=== PATIENT | female | born 1980 | race Caucasian/White ===

== ENCOUNTER → 2018-01-30 17:04 | Outpatient (CLI) | payer OTHER, SELFPAY ==
[2018-02-03 09:12] LABS: HPV APTIMA, High Risk Negative (Negative)
== END ==
PROVIDERS: Family Provider Internal Medicine; PCP Internal Medicine; Visit Provider Obstetrics & Gynecology
DX: Z12.4 Encounter for screening for malignant neoplasm of cervix (principal); Z11.51 Encounter for screening for human papillomavirus (HPV)
CPT/HCPCS: 88175; G0145

== ENCOUNTER → 2021-06-03 09:32 | Outpatient (CLI) | payer OTHER, SELFPAY ==
[2021-05-26 10:41] VITALS: BMI 37.9
--- NOTE | 2021-06-02 16:29 | BI_ITS ---
MAMMOGRAPHY - BILATERAL SCREENING REASON FOR EXAM: Female, 40 years old. Routine annual screening examination. PERTINENT HISTORY: Non-contributory. TECHNIQUE: Digital bilateral breast mara (3D mammographic acquisition) in the CC and MLO projections. 2-D mediolateral oblique (MLO) and craniocaudad (CC) views of both breasts were obtained. CAD: Full Field Digital Mammography with Computer Added Detection was performed. COMPARISON: None. Baseline examination. FINDINGS: Breast Composition: There are scattered areas of fibroglandular density. There are no dominant masses or suspicious calcifications. There is a 3.4 mm x 4.3 mm well-defined nodule in the central mid lateral aspect of the right breast. Correlation with ultrasound is recommended. Scattered microcalcifications in both breasts. No focal clusters seen. Small benign appearing bilateral axillary lymph nodes. No other significant abnormalities are identified. BI/SCRN MAMM (CAD)W/MARA BILAT IMPRESSION: 3.4 mm x 4.3 mm well-defined nodule in the central mid lateral aspect of the right breast. Correlation with ultrasound is recommended. ASSESSMENT CATEGORY: BIRADS Category 0: Incomplete. Need additional imaging evaluation. A letter regarding these results will be sent to the patient by the facility within 30 days. Approximately 10% of breast cancers are not detected by mammography. A normal mammogram should not delay biopsy of a clinically suspicious abnormality. [id number] Electronically Signed: Vicente Chapin MD at 8:19 EDT , Service support ,
== END ==
PROVIDERS: Referring Provider Nurse Practitioner Women's Health; Visit Provider Nurse Practitioner Women's Health
DX: Z12.31 Encounter for screening mammogram for malignant neoplasm of breast (principal); N63.10 Unspecified lump in the right breast, unspecified quadrant
CPT/HCPCS: 77063; 77067

== ENCOUNTER → 2021-06-16 13:54 | Outpatient (CLI) | payer OTHER, SELFPAY ==
[2021-05-26 10:41] VITALS: BMI 37.9
--- NOTE | 2021-06-16 14:00 | US_ITS ---
STUDY: ULTRASOUND BREAST - RIGHT REASON FOR EXAM: Female, 40 years old. Abnormal screening mammogram. TECHNIQUE: Axial and longitudinal images of the RIGHT breast were performed with a high resolution ultrasound transducer. # OF IMAGES: 50 COMPARISON: Comparison is made with prior mammogram dated 06/02/2021. FINDINGS: RIGHT Breast: The mammographic abnormality corresponds to a 4.4 mm x 4.4 mm x 2 mm cyst at the 7:30 position of the breast at 6 cm from nipple. Incidental note is made of a 1 cm x 1 cm x 0.4 cm lymph node in the axillary region of the breast. US/Breast Limited Unilateral IMPRESSION: 4.4 mm x 4.4 mm x 2 mm cyst at the 7:30 position of the breast at 6 cm from the nipple. ASSESSMENT CATEGORY: BIRADS Category 2: Benign. A letter regarding these results will be sent to the patient by the facility within 30 days. Electronically Signed: Vicente Chapin MD at 15:42 EDT , Service support ,
== END ==
PROVIDERS: Referring Provider Nurse Practitioner Women's Health; Visit Provider Nurse Practitioner Women's Health
DX: N60.01 Solitary cyst of right breast (principal)
CPT/HCPCS: 76642

== ENCOUNTER → 2022-09-21 | Outpatient (CLI) | payer OTHER, SELFPAY ==
[2022-09-21 09:54] LABS: Absolute Lymphocyte Count 3.44 X10^3/uL (0.83-4.51); Absolute Neutrophil Count 3.9 X10^3/uL (2.0-7.7); Basophil# 0.06 X10^3/uL; Basophil% 0.7 % (0-1); Eosinophil# 0.15 X10^3/uL; Eosinophils% 1.8 % (0-5); Hematocrit 41.2 % (37-47); Lymphocyte # 3.44 X10^3/ul (0.83-4.51); Lymphocyte % 42.3 % (19-41); Mean Corpuscular Hgb 30.4 pg (27.0-32.0); Mean Corpuscular Volume 89.4 fL (81-99); Mean Platelet Vol. 9.2 fl (6.2-12.0); Monocyte# 0.54 X10^3/uL; Monocyte% 6.6 % (0-10); NRBC Flagged by Analyzer 0 % (0-5); Neutrophil # 3.92 X10^3/uL (2.7-7.7); Neutrophil % 48.2 % (47-70); Platelet Count 376 K/mm3 (150-450); RBC Distribution Width CV 11.4 % (11.6-14.6); RBC Distribution Width SD 36.8 fl (35.1-43.9); Red Blood Count 4.61 M/mm3 (4.2-5.4); White Blood Count 8.1 K/mm3 (4.4-11.0)
[2022-09-21 10:18] LABS: Vitamin D,25 Hydroxy 13.5 ng/mL
[2022-09-21 10:34] LABS: ALB/GLOB Ratio 0.8 RATIO (0.9-2.4); AST(SGOT) 15 U/L (15-37); Alanine Aminotransfer ALT/SGPT 24 U/L (13-56); Albumin, Serum 3.4 g/dL (3.2-5.0); Alkaline Phosphatase 54 U/L (45-117); Anion Gap 8 (5-15); BUN 12 mg/dL (7-18); BUN/Creat Ratio 16.1 RATIO (10-20); Calcium,Total 9.3 mg/dL (8.5-10.1); Chloride 104 mmol/L (98-107); Cholesterol 233 mg/dL (200); Creatinine, Serum 0.74 mg/dL (0.55-1.02); EST Glomerular Filtration Rate 91 mL/min (>60); Est Glom Filt Rate - Afr Amer 110 mL/min (>60); Globulin 4.3 g/dL (2.2-4.2); Glucose 100 mg/dL (74-106); High Density Lipoprotein 91 mg/dL; Potassium 3.9 mmol/L (3.5-5.1); Protein, Total 7.7 g/dL (6.4-8.2); Sodium Level 137 mmol/L (136-145); Thyroid Stim Hormone (TSH) 2.02 uIU/mL (0.358-3.74); Triglycerides 127 mg/dL; Very Low Density Lipoprotein 25 mg/dL (5-40)
== END | disposition home or self-care (01) ==
LOC: PAVLAB 09:14
PROVIDERS: Nurse Practitioner Women's Health; Referring Provider Obstetrics & Gynecology; Visit Provider Obstetrics & Gynecology
DX: Z13.1 Encounter for screening for diabetes mellitus (principal); R53.83 Other fatigue; Z13.21 Encounter for screening for nutritional disorder; Z13.220 Encounter for screening for lipoid disorders
CPT/HCPCS: 36415; 80053; 80061; 82306; 84443; 85025

== ENCOUNTER → 2022-11-05 | Outpatient (CLI) | payer OTHER, SELFPAY ==
--- NOTE | 2022-11-05 08:31 | BI_ITS ---
MAMMOGRAPHY - BILATERAL SCREENING REASON FOR EXAM: Female, 42 years old. Routine annual screening examination. PERTINENT HISTORY: Non-contributory. TECHNIQUE: Digital bilateral breast mara (3D mammographic acquisition) in the CC and MLO projections. 2-D mediolateral oblique (MLO) and craniocaudad (CC) views of both breasts were obtained. CAD: Full Field Digital Mammography with Computer Added Detection was performed. COMPARISON: Comparison is made with prior study 06/02/2021. FINDINGS: Breast Composition: There are scattered areas of fibroglandular density. There are no dominant masses or suspicious calcifications. Stable 3.4 mm x 4.3 mm well-defined nodule in the central mid lateral aspect of the right breast. This was shown to be a small cyst on prior sonogram. Stable benign-appearing bilateral axillary lymph nodes. No other significant abnormalities are identified. There has been no significant change since the prior study. BI/SCRN MAMM (CAD)W/MARA BILAT IMPRESSION: Stable bilateral screening mammogram. Yearly follow-up mammogram recommended. (A) ASSESSMENT CATEGORY: BIRADS Category 2: Benign. A letter regarding these results will be sent to the patient by the facility within 30 days. Approximately 10% of breast cancers are not detected by mammography. A normal mammogram should not delay biopsy of a clinically suspicious abnormality. [id number] Electronically Signed: Vicente Chapin MD at 9:32 EST ,
== END | disposition home or self-care (01) ==
LOC: OPBI 08:30
PROVIDERS: PCP Internal Medicine; Referring Provider Nurse Practitioner Women's Health; Visit Provider Nurse Practitioner Women's Health
DX: Z12.31 Encounter for screening mammogram for malignant neoplasm of breast (principal)
CPT/HCPCS: 77063; 77067

== ENCOUNTER → 2023-05-04 | Outpatient (CLI) | payer OTHER, SELFPAY ==
[2023-05-04 16:59] LABS: Hemoglobin A1c 5.2 % (3.8-5.6)
== END | disposition home or self-care (01) ==
LOC: BIMLAB 15:23
PROVIDERS: Nurse Practitioner Women's Health; PCP Internal Medicine; Visit Provider Internal Medicine
DX: Z13.21 Encounter for screening for nutritional disorder (principal); Z86.32 Personal history of gestational diabetes
CPT/HCPCS: 36415; 82306; 83036

== ENCOUNTER → 2023-11-09 | Outpatient (CLI) | payer OTHER, SELFPAY ==
--- OUTSIDE RECORDS SUMMARY | 2023-11-09 17:15 | XMS RPT_ITS | CCD ---
Author Name Unknown Address [address] [place] [address] Organization [facility] Care Team Providers Care Towel Folder Name Role Phone Unavailable Unavailable Unavailable Aletha Magallanes Unavailable Unavailabl e Aletha Magallanes Unavailable Unavailabl e Required, No Pcp Unavailable Unavailable Armaan Allen Unavailable CARI Allen Attending Unavailable Allergies Allergy Classification Reported Allergen(s) Allergy Type Date of Onset Reaction(s) Facility (1 source) Codeine Drug Allergy Other [facility] (1 source) Piperacillin / tazobactam Drug Allergy Hives [facility] Medications Current Medications Medication Drug Class(es) Dates Sig (Normalized) Sig (Original) Escitalopram (1 source) Serotonin Reuptake Inhibitor Lexapro Quantity: 0 Refills: 0 Ordered: 19-Oct-2022 Garcia Rivera Generic Substitution Allowed predniSONE 10 mg oral tablet (1 source) Start: 10-19-2022 End: 10-25-2022 take 1 tablet by mouth once daily at mealtime predniSONE 10 mg oral tablet ; 3 tab(s) orally once a day in the morning with plenty of water for 7d Quantity: 21 Refills: 0 Ordered: 19-Oct-2022 Armaan Allen Start: 19-Oct-2022 End: 25-Oct-2022 Generic Substitution Allowed Comments: It is very important that you take or use this exactly as directed. Do not skip doses or discontinue unless directed by your doctor.Obtain medical advice before taking any non-prescription drugs as some may affect the action of this medication.Take with food or milk. Problems Problem Classification Problem Date Documented Da te Episodic/Chronic Acute bronchitis (3 sources) Acute viral bronchitis; Translations: [Acute bronchitis] Onset: 10-19-2022 10-19-2022 Episodic Headache; including migraine (1 source) Headache; including migraine; Translations: [Headache, unspecified] Onset: 10-19-2022 Other lower respiratory disease (2 sources) Cough 10-19-2022 Episodic Results Test Name Value Interpretation Reference Range Facil ity Vital Signs Date Time Vital Sign Value Performing Clinician Facility 10-19-2022 17:35-0500 Body height 167.6 cm No Pcp Required [facility] 10-19-2022 17:35-0500 Body temperature 98.24 [degF] No Pcp Required [facility] 10-19-2022 17:35-0500 Diastolic blood pressure 88 mm[Hg] No Pcp Required [facility] 10-19-2022 17:35-0500 Heart rate 81 /min No Pcp Required [facility] 10-19-2022 17:35-0500 Respiratory rate 20 /min No Pcp Required [facility] 10-19-2022 17:35-0500 SaO2% (BldA) [Mass fraction] 97 % No Pcp Required [facility] 10-19-2022 17:35-0500 Systolic blood pressure 141 mm[Hg] No Pcp Required [facility] Encounters Encounter Date Encounter Type Care Provider Facility Start: 10-19-2022 End: 10-19-2022 Emergency department patient visit Armaan Allen [facility] Start: 07-11-2017 Ambulatory Aletha leety:[place] Start: 07-11-2017 End: 07-11-2017 Ambulatory Alivia Gandhi Work Phone: [facility] Payers Date Payer Category Payer Unknown [id number] Unknown [id number] Unknown [employer] [place] Social History Date Type Detail Facility [facility]: [facility]: Sex Assigned At Not on file [facility] Work Phone: Summary Purpose Family History No Family History Records FoundNo Family History Records FoundNo Family History Records Found Advance Directives No Advanced Directives Records FoundNo Advanced Directives Records FoundNo Advanced Directives Records Found Additional Source Comments INFORMATION SOURCE (unrecogn ized section and content) DATE CREATED AUTHOR AUTHOR'S ORGANIZ ATION 04/19/2018 [facility] DATE CREATED AUTHOR AUTHOR'S ORGANIZ ATION 10/21/2022 [facility] <item> Privacy Markings (unrecogniz ed section and content) Section Author: Samaria Friedman PROHIBITION ON REDISCLOSURE OF CONFIDENTIAL INFORMATION This notice accompanies a disclosure of information concerning a client made to you with the consent of such client. FOR RECORDS PERTAINING TO PATIENTS WHO ARE OR HAVE BEEN ENROLLED IN A CHEMICAL DEPENDENCY/SUBSTANCEABUSE PROGRAM, SOME INFORMATION MAY BE OMITTED. This clinical summary was aggregated from multiple sources. Caution should be exercised in using it in the provision of clinical care. This summary normalizes information from multiple sources, and as a consequence, information in this document may materially change the coding, format and clinical context of patient data. In addition, data may be omitted in some cases. CLINICAL DECISIONS SHOULD BE BASED ON THE PRIMARY CLINICAL RECORDS. [facility] [employer] [facility]. provides no warranty or guarantee of the accuracy or completeness of information in this document.
[2023-11-14 15:07] LABS: HPV APTIMA, High Risk Negative (Negative)
== END | disposition home or self-care (01) ==
LOC: LABSPEC 17:00
PROVIDERS: PCP Internal Medicine; Referring Provider Nurse Practitioner Women's Health; Visit Provider Nurse Practitioner Women's Health
DX: Z12.4 Encounter for screening for malignant neoplasm of cervix (principal)
CPT/HCPCS: 87624; 88175; G0145

== ENCOUNTER → 2023-11-28 | Outpatient (CLI) | payer OTHER, SELFPAY ==
--- NOTE | 2023-11-28 09:57 | BI_ITS ---
MAMMOGRAPHY - BILATERAL SCREENING REASON FOR EXAM: Female, 43 years old. Routine annual screening examination. PERTINENT HISTORY: Non-contributory. TECHNIQUE: Digital bilateral breast mara (3D mammographic acquisition) in the CC and MLO projections. 2-D mediolateral oblique (MLO) and craniocaudad (CC) views of both breasts were obtained. CAD: Full Field Digital Mammography with Computer Added Detection was performed. COMPARISON: Comparison is made with prior study dated May 05, 2023 and June 02, 2021. FINDINGS: Breast Composition: The breasts are almost entirely fatty. There are no dominant masses or suspicious calcifications. Stable 3.5 mm well-defined nodule in the central mid lateral portion of the right breast. This was demonstrated to be a small cyst. No other significant abnormalities are identified. There has been no significant change since the prior study. BI/SCRN MAMM (CAD)W/MARA BILAT IMPRESSION: Stable bilateral screening mammogram. Yearly follow-up mammogram recommended. (A) ASSESSMENT CATEGORY: BIRADS Category 2: Benign. A letter regarding these results will be sent to the patient by the facility within 30 days. Approximately 10% of breast cancers are not detected by mammography. A normal mammogram should not delay biopsy of a clinically suspicious abnormality. [id number] Electronically Signed: Vicente Chapin MD at 11:09 EST ,
--- OUTSIDE RECORDS SUMMARY | 2023-11-28 10:23 | XMS RPT_ITS | CCD ---
Author Name Unknown Address [address] [place] [address] Organization [facility] Care Team Providers Care Machine Repair Person Name Role Phone Unavailable Unavailable Unavailable Aletha Mgaallanes Unavailable Unavailabl e Aletha Magallanes Unavailable Unavailabl e Required, No Pcp Unavailable Unavailable Armaan Allen Unavailable CARI Allen Attending Unavailable Allergies Allergy Classification Reported Allergen(s) Allergy Type Date of Onset Reaction(s) Facility (1 source) Codeine Drug Allergy Other [facility] (1 source) Piperacillin / tazobactam Drug Allergy Hives [facility] Medications Current Medications Medication Drug Class(es) [...] Body height 167.6 cm No Pcp Required [facility] 10-19-2022 17:35-0500 Body temperature 98.24 [degF] No Pcp Required [facility] 10-19-2022 17:35-0500 Diastolic blood pressure 88 mm[Hg] No Pcp Required [facility] 10-19-2022 17:35-0500 Heart rate 81 /min No Pcp Required [facility] 10-19-2022 17:35-0500 Respiratory rate 20 /min No Pcp Required [facility] 10-19-2022 17:35-0500 SaO2% (BldA) [Mass fraction] 97 % No Pcp Required [facility] 10-19-2022 17:35-0500 Systolic blood pressure 141 mm[Hg] No Pcp Required [facility] Encounters Encounter Date Encounter Type Care Provider Facility Start: 10-19-2022 End: 10-19-2022 Emergency department patient visit Armaan Allen [facility] Start: 07-11-2017 Ambulatory Aletha leety:[place] Start: 07-11-2017 End: 07-11-2017 Ambulatory Alivia Gandhi Work Phone: [facility] Payers Date Payer Category Payer Unknown [id number] Unknown [id number] Unknown [employer] [place] Social History Date Type Detail Facility Start: 07-12-2017 [facility]: Sex Assigned At Not on file [facility] Work Phone: Summary Purpose Family History No Family History Records FoundNo Family History Records FoundNo Family History Records Found Advance Directives No Advanced Directives Records FoundNo Advanced Directives Records FoundNo Advanced Directives Records Found Additional Source Comments INFORMATION SOURCE (unrecogn ized section and content) DATE CREATED AUTHOR AUTHOR'S ORGANIZ ATION 04/19/2018 [facility] DATE CREATED AUTHOR AUTHOR'S ORGANIZ ATION 10/21/2022 [facility] <item> Privacy Markings (unrecogniz ed section and [...] BE BASED ON THE PRIMARY CLINICAL RECORDS. [facility] [employer] [facility]. provides no warranty or guarantee of the accuracy or completeness of information in this document.
== END | disposition home or self-care (01) ==
LOC: OPBI 09:57
PROVIDERS: PCP Internal Medicine; Referring Provider Nurse Practitioner Women's Health; Visit Provider Nurse Practitioner Women's Health
DX: Z12.31 Encounter for screening mammogram for malignant neoplasm of breast (principal)
CPT/HCPCS: 77063; 77067

== ENCOUNTER → 2024-11-30 | Outpatient (CLI) | payer OTHER, SELFPAY ==
--- NOTE | 2024-11-30 08:58 | BI_ITS ---
PROCEDURE: SCRN MAMM (CAD)W/MARA BILAT REASON FOR EXAM: F, Age 44 y/o, no family history. Annual mammographic follow-up. TECHNIQUE: Bilateral screening digital breast tomosynthesis with 2D and 3D images. Computer aided detection. COMPARISON: Prior exam(s) dating back to November 28, 2023.. FINDINGS: There are scattered areas of fibroglandular density. Stable bilateral scattered microcalcifications. No focal cluster is seen. Stable small bilateral axillary lymph nodes. No suspicious masses, areas of developing architectural distortion, or suspicious calcifications. BI/SCRN MAMM (CAD)W/MARA BILAT IMPRESSION: BI-RADS 2: BENIGN. RECOMMEND ANNUAL MAMMOGRAPHIC SCREENING. Follow-up code: Routine Follow-up The patient will be notified of the results by letter. Reading Location: [place] [id number]
--- NOTE | 2024-11-30 08:58 | US_ITS ---
PROCEDURE: PELVIC W/ TRANSVAGINAL REASON FOR EXAM: Abnormal uterine bleeding. IUD check. TECHNIQUE: Transabdominal and transvaginal pelvic ultrasound COMPARISON: None. FINDINGS: Measurements: Uterus: 8.3 cm x 5.4 cm x 4.8 cm. Endometrial Thickness: 11 mm. Right Ovary: 2.9 cm x 2.4 cm x 1.2 cm. Left Ovary: 2.4 cm x 2.6 cm x 1.8 cm. Uterus: Normal size, myometrial echotexture, and contour. Anteflexed. Nabothian cysts noted. There is a 1 cm calcification noted in the cervix. Endometrium: Unremarkable. Intrauterine device located in the fundus to the lower uterine segment within the posterior endometrium. Right ovary: Normal size and echotexture. Blood flow is documented to the ovary. Left ovary: Normal size and echotexture. Blood flow is documented to the ovary. No large pelvic mass identified. No significant fluid is noted in the cul-de-sac. US/Pelvic w/ Transvaginal IMPRESSION: Intrauterine device located in the fundus to the lower uterine segment within t he posterior endometrium. Reading Location: [id number]
== END | disposition home or self-care (01) ==
LOC: OPUS 08:58
PROVIDERS: PCP Internal Medicine; Referring Provider Nurse Practitioner Women's Health; Visit Provider Nurse Practitioner Women's Health
DX: Z12.31 Encounter for screening mammogram for malignant neoplasm of breast (principal)
CPT/HCPCS: 76830; 76856; 77063; 77067